=== PATIENT | female | born 2000 | race African-American/Black ===

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

== ENCOUNTER 2019-08-20 16:12 | Observation (INO) | payer MEDICAID ==
[~2019-08-20] VITALS: Ht 162.6 cm; Wt 70.0 kg
[2019-08-20 16:20] VITALS: BP 106/64
[2019-08-20 18:17] LABS: BASOPHILS % 1.5 % (0.0-2.0); EOSINOPHILS % 3.6 % (0.0-5.0); HEMOGLOBIN. 10.4 g/dL (12.0-16.0); LYMPHOCYTES % 20.3 % (20.0-50.0); MEAN CORPUSCULAR HEMOGLOBIN 29.4 pg (28.0-32.0); MEAN CORPUSCULAR VOLUME 90.7 fL (81.0-99.0); MEAN PLATELET VOLUME 9.6 fl (7.4-10.4); MONOCYTES % 4.9 % (2.0-8.0); NEUTROPHILS % 69.7 % (40.0-76.0); PLATELET 237 x1000/uL (130-400); RED BLOOD CELL COUNT 3.53 mill/uL (4.2-5.4); RED CELL DISTRIBUTION WIDTH 14.4 % (11.6-14.6)
[2019-08-20 18:24] LABS: CHLORIDE 108 mEq/L (98-107)
== END 2019-08-20 19:05 | disposition home or self-care (01) ==
LOC: ER 16:12 → 8 EST LDRP 17:30
PROVIDERS: ADMIT Obstetrics & Gynecology; ATTEND Obstetrics & Gynecology
DX: O26.892 Other specified pregnancy related conditions, second trimester (principal); R55 Syncope and collapse; Z3A.22 22 weeks gestation of pregnancy
CPT/HCPCS: 36415; 80053; 85025; 99284; G0378; 99281